=== PATIENT | female | born 1975 | race Caucasian/White ===

== ENCOUNTER 2016-12-12 11:34 | Emergency (ER) | payer SELFPAY ==
[2016-12-12 13:37] VITALS: BP 113/75
--- NOTE | 2016-12-12 18:26 | ED Physician Documentation ---
Animal Bite - [facility] Stated Complaint: rash - PAST HX Allergies/Adverse Reactions: Allergies Allergy/AdvReac Type Severity Reaction Status Date / Time No Known Allergies Allergy Verified 12/12/16 13:33 Home Medications: Ambulatory Orders Medication Instructions Recorded Hum Insulin NPH/Reg Insulin Hm 20 units SUBCUT BID 12/12/16 [Novolin 70-30 [place]] Insulin Regular, Human [Novolin R] 10 units SUBCUT BID 12/12/16 Levothyroxine Sodium [Unithroid] 125 mcg PO DAILY 12/12/16 - VITAL SIGNS Vital Signs: Vital Signs Temp Pulse Resp BP Pulse Ox 98.0 F 97 H 18 113/75 98 12/12/16 12:59 12/12/16 12:59 12/12/16 12:59 12/12/16 12:59 12/12/16 12:59 Discharge Referrals: Primary Doctor,No [Primary Care Provider] - 2 Days Additional 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 Home Medications: Ambulatory Orders Hum Insulin NPH/Reg Insulin Hm [Novolin 70-30 [place]] 20 units SUBCUT BID 12/12 Insulin Regular, Human [Novolin R] 10 units SUBCUT BID 12/12/16 Levothyroxine Sodium [Unithroid] 125 mcg PO DAILY 12/12/16 Condition: Stable Disposition: 01 HOME, SELF-CARE Decision to Admit: NO Decision Time: 12:45
--- NOTE | 2016-12-12 22:53 | ED Physician Documentation ---
Skin Rash - HISTORIAN Historian: patient - HPI Stated Complaint: rash Chief Complaint: Skin Rash Onset: hours Timing: worse Duration: worse Location: other (left shoulder) Quality: itchy, painful Identified Cause?: Yes (shingles) Context: Medication Exposure: none Context: Food Exposure: none Further Comments: yes (41 year old female patient presents with rash. Patient concerned she has shingles again. Patient reports rash started yesterday, c/o severe pain and itching on left posterior shoulder.) - ROS CONST: none CVS/RESP: none EYES/ENT: none GI/: none MS/SKIN/LYMPH: none NEURO/PSYCH: none - PAST HX Past History: diabetes Type 2 (IDDM), other (hypothyroidism) Surgeries/Procedures: Yes (hysterectomy, cholecystectomy) Allergies/Adverse Reactions: Allergies Allergy/AdvReac Type Severity Reaction Status Date / Time No Known Allergies Allergy Verified 12/12/16 13:33 Home Medications: Ambulatory Orders Medication Instructions Recorded Hum Insulin NPH/Reg Insulin Hm 20 units SUBCUT BID 12/12/16 [Novolin 70-30 [place]] Insulin Regular, Human [Novolin R] 10 units SUBCUT BID 12/12/16 Levothyroxine Sodium [Unithroid] 125 mcg PO DAILY 12/12/16 - SOCIAL HX Smoking History: cigarettes - FAMILY HX Family History: denies: none - VITAL SIGNS Vital Signs: Vital Signs Temp Pulse Resp BP Pulse Ox 98.0 F 97 H 18 113/75 98 12/12/16 12:59 12/12/16 12:59 12/12/16 12:59 12/12/16 12:59 12/12/16 12:59 - REVIEWED ASSESSMENTS Nursing Assessment Reviewed: Yes Vitals Reviewed: Yes Skin Rash Physical Exam - EXAM General Appearance: mild distress Skin: warm,dry, pointing fluctuant with erythema, skin rash Location: extremities (left shoulder) Character: vesicular Symptoms: tenderness, weeping, crusting Extremities: non-tender, nml ROM, no edema EENT: eyes nml inspection Respiratory: no resp distress, chest non-tender, breath sounds normal CVS: reg. 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 Home Medications: Ambulatory Orders Hum Insulin NPH/Reg Insulin Hm [Novolin 70-30 [place]] 20 units SUBCUT BID 12/12 Insulin Regular, Human [Novolin R] 10 units SUBCUT BID 12/12/16 Levothyroxine Sodium [Unithroid] 125 mcg PO DAILY 12/12/16 Condition: Stable Disposition: 01 HOME, SELF-CARE Decision to Admit: NO Decision Time: 12:45
== END 2016-12-12 12:59 | disposition home or self-care (01) ==
LOC: ED 11:34
DX: B02.9 Zoster without complications (principal)
CPT/HCPCS: 99283

== ENCOUNTER 2019-03-28 09:38 | Outpatient (CLI) | payer SELFPAY | END 2019-03-28 09:40 | LOC: LAB 09:38 | PROVIDERS: ATTEND Family Medicine | DX: M79.10 Myalgia, unspecified site (principal) | CPT/HCPCS: 36415; 85651 ==